=== PATIENT | female | born 1980 | race Caucasian/White ===

== ENCOUNTER → 2016-05-29 | Outpatient (CLI) | payer OTHER ==
--- NOTE | 2016-05-29 08:40 | RAD ---
Abdominal ultrasound, 05/29/2016: History: Pelvic mass The gallbladder is within normal limits in size. There is no sonographic evidence of cholelithiasis. The gallbladder wall is not thickened. No bile duct dilatation is seen. The visualized portions of the liver, pancreas, spleen and both kidneys are unremarkable. The abdominal aorta is of normal caliber. The inferior vena cava shows no abnormality. No free fluid is evident in the abdomen. IMPRESSION: No significant abdominal abnormality is detected. Pelvic ultrasound, 05/29/2016: Transabdominal and transvaginal scans were obtained. The uterus is within normal limits in size. There is a normal central uterine echo. No uterine mass is seen. The ovaries are at the upper limits of normal in size. They contain small follicular cysts. No adnexal mass is seen. A small amount of free fluid is noted in the pelvis. This amount of fluid can be on a physiologic basis. Small benign-appearing lymph nodes are noted at the right groin level. IMPRESSION: 1. Small amount of free fluid in the pelvis. 2. The pelvic ultrasound is otherwise unremarkable.
== END | disposition home or self-care (01) ==
LOC: US 07:01
PROVIDERS: ATTEND Physician Assistant Surgical
DX: R19.00 Intra-abdominal and pelvic swelling, mass and lump, unspecified site (principal)
CPT/HCPCS: 76700; 76830; 76856

== ENCOUNTER → 2016-10-20 | Outpatient (CLI) | payer OTHER ==
[2016-10-20 17:38] LABS: FOLATE 11.11 ng/ml (3.2-20.0)
[2016-10-22 12:20] LABS: ALPHA 1 0.2 g/dL (0.0-0.4); ALPHA 2 0.7 g/dL (0.4-1.0); BETA 0.9 g/dL (0.7-1.3); M-SPIKE Not Observed g/dL (Not Observed); PROTEIN TOTAL 6.9 g/dL (6.0-8.5)
== END | disposition home or self-care (01) ==
LOC: LAB 14:49
PROVIDERS: ATTEND Psychiatry & Neurology Neurology with Special Qualifications in Child Neurology
DX: G62.9 Polyneuropathy, unspecified (principal)
CPT/HCPCS: 36415; 82607; 82746; 84165; 85651

== ENCOUNTER → 2017-04-22 | Outpatient (CLI) | payer OTHER | END | disposition home or self-care (01) | LOC: MRI 12:02 | DX: M48.02 Spinal stenosis, cervical region (principal); M51.36 Other intervertebral disc degeneration, lumbar region; R20.0 Anesthesia of skin | CPT/HCPCS: 72141; 72148 ==

== ENCOUNTER → 2017-05-04 | Outpatient (CLI) | payer OTHER | END | disposition home or self-care (01) | LOC: PNCL 08:08 | DX: M51.26 Other intervertebral disc displacement, lumbar region (principal); I10 Essential (primary) hypertension; Z83.3 Family history of diabetes mellitus | CPT/HCPCS: 99213 ==

== ENCOUNTER → 2017-05-18 | Outpatient (CLI) | payer OTHER ==
[~2017-05-18] MED LIST: IOHEXOL 180 MG/ML 10 ML VIAL.; methylPREDNISolone ACETATE 40 MG/ML VIAL.; methylPREDNISolone ACETATE 80 MG/ML VIAL.
== END ==
LOC: PNCL 07:51
DX: M51.16 Intervertebral disc disorders with radiculopathy, lumbar region (principal)
CPT/HCPCS: 62323; J1030; J1040; Q9965

== ENCOUNTER → 2017-06-01 | Outpatient (CLI) | payer OTHER | END | disposition home or self-care (01) | LOC: PNCL 14:09 | DX: M51.16 Intervertebral disc disorders with radiculopathy, lumbar region (principal) | CPT/HCPCS: 99212 ==

== ENCOUNTER → 2017-07-14 | Outpatient (CLI) | payer OTHER ==
[~2017-07-14] MED LIST changes: +LIDOCAINE 1% PF 2 ML VIAL.
== END | disposition home or self-care (01) ==
LOC: PNCL 10:21
DX: M51.16 Intervertebral disc disorders with radiculopathy, lumbar region (principal); Z88.5 Allergy status to narcotic agent
CPT/HCPCS: 62323; J1030; J1040; Q9965

== ENCOUNTER → 2018-01-20 | Outpatient (CLI) | payer OTHER ==
[~2018-01-20] MED LIST changes: +DOXY100C2 PO; -IOHEXOL 180 MG/ML 10 ML VIAL.; +LEVO112T4 PO; -LIDOCAINE 1% PF 2 ML VIAL.; +NORE0.3520 PO; +PROP10TA PO; -methylPREDNISolone ACETATE 40 MG/ML VIAL.; -methylPREDNISolone ACETATE 80 MG/ML VIAL.
--- NOTE | 2018-01-20 19:31 | PAIN ---
DATE OF SERVICE: 01/20/2018 DIAGNOSES: Lumbar radiculopathy with lumbar degenerative disk disease. HISTORY OF PRESENT ILLNESS: The patient is a 37-year-old female who returns for followup status post lumbar epidural steroid injection x 2, last was 07/14/2017. The patient did very well with 100% improvement for the first month and then about 60% improvement overall and still about 60% improvement, still the pain is returning now, more noticeable day by day in the low back, left lower extremity, posterior gluteus, posterior thigh region, posterior calf with numbness as well, tingling, burning, stabbing and sharp, tight in the back and shooting in the leg in a radicular fashion on the left side. The patient reports she has had some acupuncture since she last was here, which helped mildly. She also continues to do physical therapy exercises on her own, stretching and strengthening, and she is exercising regularly daily. Also, was running competitively, but has stopped the running because it was exacerbating the pain over about the past 2 months. The patient reports the pain is an 8 on a scale of 10 at its worst, 6-7 on average and 1-2 at its least, also has some complaints of numbness and tingling in both the arms and hands and some pain in the base of the neck and shoulders. The patient did have a new MRI scan of the cervical spine, which shows degenerative changes, most significant with mild left-sided central stenosis at C4-C5 without significant cord impingement. The patient's back, however, remains a significant complaint and the patient reports no new motor or sensory deficits, no bowel or bladder incontinence. PHYSICAL EXAMINATION: VITAL SIGNS: The patient's blood pressure 116/64, pulse 68, respirations 16, temperature 98.2 degrees Fahrenheit, height is 5 feet 8 inches, weight is 138 pounds. GENERAL: She is awake, alert, oriented, appropriate, very pleasant demeanor. HEENT: Head shows normocephalic, atraumatic. Extraocular movements intact and symmetrical. Oral cavity: Mucous membranes moist and pink. Dentition intact. NECK: Shows anterior throat supple without palpable lymphadenopathy noted. Swallow reflex is symmetrical. CHEST: Shows normal with inspection. Breath sounds are clear to auscultation bilaterally. HEART: Shows S1, S2 clear. No murmurs auscultated. ABDOMEN: Soft, nontender, nondistended. No palpable organomegaly is noted. No rebound or guarding demonstrated. BACK: Shows spine grossly in the midline, normal appearing thoracic kyphosis and lumbar lordotic curvature. Lumbar paraspinous muscle shows symmetrical on inspection, on palpation shows some mild tenderness diffusely in the low lumbar distribution, more on the left than the right, but only diffusely without radiation, without trigger points, without atrophy or hypertrophy. The patient has good rotational motion of the lumbar spine, both laterally as well as extension and flexion without difficulty or pain reported. EXTREMITIES: Lower extremities show deep tendon reflexes 2+ in the patellar and tendo calcaneus tendons are 1+. Motor exam is strong with 5/5 dorsiflexion, extension, quadriceps and hamstring flexion equal and symmetrical bilaterally as well. Peripheral pulses are 1+ posterior tibial. No peripheral edema is noted bilaterally. Options were discussed with the patient. The patient's old chart was reviewed as her current medication regimen updated. Current review of systems updated today as well. We will proceed with preauthorization for an additional lumbar epidural steroid injection. The patient did very well with the last injection, near 100% improvement for the first month, now tapered down to be about 60%. The patient with radiculopathy in the L5-S1 dermatomal distribution on the left side as noted. Again, significantly improved, but returning pain in a radicular fashion as described. The patient will continue with exercises and working out. Also, try Medrol Dosepak to see if this may help with some of the pain in the meantime as well as the numbness and tingling in the cervical distribution as well. The patient will return to clinic once preauthorization is obtained and we will plan on lumbar epidural steroid injection at that time. JOSE MARCOS MD DR: JERRELL/ysabel JOB#: [id number] / [id number]
== END | disposition home or self-care (01) ==
LOC: PNCL 15:12
PROVIDERS: ATTEND Anesthesiology
DX: M51.16 Intervertebral disc disorders with radiculopathy, lumbar region (principal); M48.02 Spinal stenosis, cervical region; M47.892 Other spondylosis, cervical region
CPT/HCPCS: G0463

== ENCOUNTER → 2018-01-27 | Outpatient (CLI) | payer OTHER ==
[~2018-01-27] MED LIST changes: +IOHEXOL 180 MG/ML 10 ML VIAL. ONE; +methylPREDNISolone ACETATE 40 MG/ML VIAL. ONE; +methylPREDNISolone ACETATE 80 MG/ML VIAL. ONE
--- NOTE | 2018-01-27 08:24 | PAIN ---
DATE OF SERVICE: 01/27/2018 PROGRESS NOTE FOR PAIN CLINIC DIAGNOSIS: Lumbar radiculopathy with lumbar degenerative disk disease. HISTORY OF PRESENT ILLNESS: The patient is a 37-year-old female who returns for followup status post lumbar epidural steroid injections with very good results. She has preauthorization for the injection today and has obtained this now and would like to proceed, still complaining of pain in the low back, more on the left side than the right with the left posterior gluteus, posterior thigh, lateral thigh, rates it 8 on a scale of 10 at its worst, 6-7 on average and 0-1 at its least and is a 6 today. The patient reports no new motor or sensory deficits and no new bowel or bladder incontinence or other complaints. Still awakening her from sleep about every 5-7 hours but most times does not awaken her; better with sitting or lying down; worse with standing, walking, changing positions, bending, stooping. The patient reports the pain is aching and tight across the low back and into the leg with some stabbing and shooting pain occasionally but only on and off. The patient reports no new motor or sensory deficits and no new bowel or bladder incontinence or other complaints. PHYSICAL EXAMINATION: VITAL SIGNS: The patient's blood pressure is 96/57, pulse 69, respirations 18 and temperature 97.6 degrees Fahrenheit. Height is 5 feet 8 inches and weighs 138 pounds. GENERAL: The patient is awake, alert, oriented, appropriate and very pleasant demeanor. HEENT: Head shows normocephalic and atraumatic. Extraocular movements are intact and symmetrical. Oral cavity: Mucous membranes are moist and pink. Dentition is intact. NECK: Shows anterior throat supple without palpable lymphadenopathy noted. Swallow reflex is symmetrical. CHEST: Shows normal on inspection. Breath sounds clear to auscultation bilaterally. HEART: Shows S1 and S2 clear. No murmurs auscultated. ABDOMEN: Soft, nontender and nondistended. No palpable organomegaly is noted. No rebound or guarding demonstrated. BACK: Shows spine grossly in the midline. Normal appearing thoracic kyphosis and lumbar lordotic curvature. Lumbar paraspinous muscle shows symmetrical on inspection, on palpation shows some moderate tenderness but only diffusely in the low lumbar distribution, but is symmetrical without evidence of atrophy or hypertrophy. The patient has good rotational motion both laterally as well as extension and flexion without difficulty. EXTREMITIES: Lower extremities show deep tendon reflexes at 2+ in the patellar, 1+ in tendo-calcaneus tendons. Motor exam is strong with 5/5 dorsiflexion, extension, quadriceps and hamstring flexion equal. Peripheral pulses are 1+ posterior tibial. No peripheral edema is noted bilaterally. Options were discussed with the patient. The patient's old chart was reviewed as well as her current medication regimen updated. Current review of systems updated today as well. We will proceed with a first in the series of lumbar epidural steroid injection today with fluoroscopic guidance. Risks were again discussed including, but not limited to bleeding, infection, possibility of epidural hematoma, subsequent neurologic compromise, dural puncture, headaches, spinal cord and/or nerve damage, side effects of steroid medication and poor results regarding pain control. The patient understands and wished to proceed. The patient will return to the clinic in approximately 2 weeks for followup, was counseled as to return appointment, activity level and side effects to be aware of. DIAGNOSIS: Lumbar radiculopathy with lumbar degenerative disk disease. PROCEDURE: Lumbar epidural steroid injection, translaminar approach at the L5-S1 level using C-arm fluoroscopic guidance under sterile prep and drape using local anesthetic. MEDICATIONS INJECTED: A total of 120 mg Depo-Medrol plus 10 mL of preservative-free normal saline and 2 mL of Isovue for contrast. CONDITION AT DISCHARGE: Stable. The patient tolerated the procedure well and had no complications. JOSE MARCOS MD DR: JERRELL/ysabel JOB#: [id number] / [id number]
== END | disposition home or self-care (01) ==
LOC: PNCL 07:29
PROVIDERS: ATTEND Anesthesiology
DX: M51.16 Intervertebral disc disorders with radiculopathy, lumbar region (principal); Z88.5 Allergy status to narcotic agent
CPT/HCPCS: 62323; J1030; J1040; Q9965

== ENCOUNTER → 2018-06-15 | Outpatient (CLI) | payer OTHER ==
[~2018-06-15] MED LIST changes: -IOHEXOL 180 MG/ML 10 ML VIAL. ONE; -methylPREDNISolone ACETATE 40 MG/ML VIAL. ONE; -methylPREDNISolone ACETATE 80 MG/ML VIAL. ONE
--- NOTE | 2018-06-15 13:26 | RAD ---
DATE: 06/15/2018 EXAM: DIGITAL DIAGNOSTIC BILATERAL, left breast ultrasound HISTORY: Left breast pain COMPARISON: 01/08/2016 This study was interpreted with the benefit of Computerized Aided Detection (CAD). Breast Density: HETERO The breast parenchyma is heterogenously dense, which could reduce sensitivity of mammography. Breast parenchyma level C. FINDINGS: The fibroglandular tissues are heterogeneous. No new or enlarging breast densities are seen. A benign type calcifications noted on the right. No suspicious microcalcifications are evident. Left breast ultrasound, 06/15/2018: The left breast was carefully scanned. The fibroglandular shadows are heterogeneous. At the 2:00 location approximately 4 cm from the nipple there is a smooth 5 mm hypoechoic nodule. There is no definite posterior acoustic enhancement or shadowing. It is rounded in configuration. There are low level internal echoes. No internal color flow is seen. It has a relatively benign appearance and is probably a complicated cyst or fibroadenoma. No other breast abnormality is detected. IMPRESSION: 1. No mammographic abnormality is detected. 2. Small, probably benign left breast nodule identified sonographically. Follow-up left breast ultrasound in 6 months is suggested. BI-RADS CATEGORY: 3 PROBABLY BENIGN FINDING(S)-SHORT INTERVAL FOLLOW-UP SUGGESTED RECOMMENDED FOLLOW-UP: 6M 6 MONTH FOLLOW-UP PQRS compliance statement: Patient information was entered into a reminder system with a target due date for the next mammogram. Mammography is a sensitive method for finding small breast cancers, but it does not detect them all and is not a substitute for careful clinical examination. A negative mammogram does not negate a clinically suspicious finding and should not result in delay in biopsying a clinically suspicious abnormality. "Our facility is accredited by the [employer] Mammography Program."
== END | disposition home or self-care (01) ==
LOC: MAMMO 12:18
PROVIDERS: ATTEND Nurse Practitioner Family
DX: N63.21 Unspecified lump in the left breast, upper outer quadrant (principal); N64.89 Other specified disorders of breast
CPT/HCPCS: 76641; 77066

== ENCOUNTER → 2018-08-10 | Outpatient (CLI) | payer OTHER ==
--- NOTE | 2018-08-10 09:12 | RAD ---
Chest radiograph 08/10/2018 12:00 AM INDICATION: Cough, worsening over the past 2 weeks. COMPARISON: None available TECHNIQUE: Frontal and lateral views of the chest are provided. FINDINGS: The cardiomediastinal silhouette is within normal limits. There are no pleural effusions. There is no pulmonary vascular congestion. There is no pneumothorax. The lungs are clear. Dextroconvex scoliosis of the thoracic spine centered at T7-T8. IMPRESSION: No acute cardiopulmonary process. Electronically signed by: Christen Luna MD (08/10/2018 9:10 AM) [id number]
== END | disposition home or self-care (01) ==
LOC: RAD 08:25
PROVIDERS: ATTEND Preventive Medicine Undersea and Hyperbaric Medicine
DX: M41.84 Other forms of scoliosis, thoracic region (principal)
CPT/HCPCS: 71046

== ENCOUNTER → 2019-01-25 | Outpatient (CLI) | payer OTHER ==
--- NOTE | 2019-01-25 13:46 | RAD ---
LEFT BREAST SONOGRAPHY Clinical indications: Follow-up of 5 mm nodule the 2:00 position of the left breast 4 cm from the nipple. COMPARISON: June 15, 2018. FINDINGS: High-resolution sonography of the upper outer quadrant of the left breast was performed. At the 2:30 position 4 cm from the nipple, a 4 mm hypoechoic nodule is seen with thin echogenic capsule around it and no microlobulations. No internal color flow is seen. This may represent a small fibroadenoma. IMPRESSION: No increase in size of small 4 mm hypoechoic nodule of the 2:30 position of the left breast most likely representing a small fibroadenoma. Recommend left breast sonography at the time of the next patient's annual mammogram in 6 months. BI-RADS Category 3 probable benign finding The patient information was entered into the data reminder system with a target due date for the next imaging study of July 27, 2019.
== END | disposition home or self-care (01) ==
LOC: US 13:20
PROVIDERS: ATTEND Obstetrics & Gynecology
DX: N63.21 Unspecified lump in the left breast, upper outer quadrant (principal)
CPT/HCPCS: 76641

== ENCOUNTER → 2019-06-05 | Outpatient (CLI) | payer OTHER ==
[~2019-06-05] MED LIST changes: -LEVO112T4 PO; +LEVO112T49 PO
[2019-06-05 09:46] LABS: CLARITY,URINE BLOODY; COLOR,URINE RED
[2019-06-05 09:47] LABS: BACTERIA,URINE 0 /HPF (0-FEW); RBC,URINE TNTC /HPF (0-2); SQUAMOUS EPITHELIAL CELL,UR OCC /LPF; WBC,URINE 0 /HPF (0-4)
== END | disposition home or self-care (01) ==
LOC: LAB 08:52
PROVIDERS: ATTEND Emergency Medicine Undersea and Hyperbaric Medicine
DX: N39.0 Urinary tract infection, site not specified (principal)
CPT/HCPCS: 81001; 87086

== ENCOUNTER → 2019-10-20 | Outpatient (CLI) | payer OTHER | END | disposition home or self-care (01) | LOC: LAB 11:27 | PROVIDERS: ATTEND Internal Medicine Pulmonary Disease | DX: U07.1 COVID-19 (principal) | CPT/HCPCS: U0003-CS ==

== ENCOUNTER → 2019-11-07 | Outpatient (CLI) | payer OTHER ==
--- NOTE | 2019-11-08 09:00 | RAD ---
EXAMINATION: BREAST LEFT, MAMMO BENJAMIN DIAG BILAT History: Reason: Follow up left breast / Spl. Instructions: / History: Comparison: 12/12/2015, 06/15/2018, left breast ultrasound examinations 06/15/2018 and 01/25/2019. Technique: Bilateral digital diagnostic mammogram views were obtained. CAD was utilized. 3-D tomosynthesis images were acquired. Findings: Breast Tissue Density C : The breasts are heterogeneously dense, which may obscure small masses. There are no dominant masses, suspicious microcalcifications, or architectural distortion. Ultrasound examination of the left breast was performed in the 2:30 region 4 cm from the nipple. Complicated cyst at this site has decreased in size and currently measures 0.2 cm x 0.2 cm x 0.2 cm. No flow evident within it. IMPRESSION: No mammographic evidence of malignancy. Recommend routine screening. BI-RADS category 1: Negative. The images were reviewed with computer aided detection. Patient information is entered into the reminder system with a target due date for the next screening mammogram. Mammography is the most sensitive method for finding small breast cancers, but it does not detect them all and is not a substitute for careful clinical examination. A negative mammogram does not negate a clinically suspicious finding and should not result in delay in biopsying a clinically suspicious abnormality. "Our facility is accredited by the [employer] Mammography Program." Electronically signed by: Darryl Hardwick MD (11/08/2019 8:57 AM) [id number]
== END | disposition home or self-care (01) ==
LOC: MAMMO 13:08
PROVIDERS: ATTEND Family Medicine
DX: R92.8 Other abnormal and inconclusive findings on diagnostic imaging of breast (principal); N60.02 Solitary cyst of left breast
CPT/HCPCS: 76641; 77066; G0279; 77062

== ENCOUNTER → 2020-04-17 | Outpatient (CLI) | payer OTHER ==
--- NOTE | 2020-04-17 09:10 | RAD ---
Renal ultrasound 04/17/2020 CLINICAL HISTORY: Hematuria. TECHNIQUE: A real-time ultrasound examination of both kidneys and the urinary bladder was performed. Multiple images were obtained. FINDINGS: Both kidneys are within normal limits in size and echogenicity. The right kidney measures 1 1.5 cm in length. The left kidney measures 12.4 cm in length. No focal abnormality of either kidney i s seen. There is no evidence of hydronephrosis. No renal calculus is seen. The urinary bladder is distended with urine. No abnormality is seen. IMPRESSION: Negative study. Electronically signed by: Orlando Ramirez MD (04/17/2020 9:08 AM) [id number]
== END ==
LOC: US 08:06
PROVIDERS: ATTEND Family Medicine
DX: R31.9 Hematuria, unspecified (principal); N32.89 Other specified disorders of bladder
CPT/HCPCS: 76770

== ENCOUNTER → 2021-02-04 | Outpatient (CLI) | payer OTHER ==
[~2021-02-04] MED LIST changes: -DOXY100C2 PO; +DOXY100C3 PO
== END ==
LOC: LAB 11:31
PROVIDERS: ATTEND Internal Medicine Pulmonary Disease
DX: R05.9 Cough, unspecified (principal); R51.9 Headache, unspecified; R09.81 Nasal congestion; R43.0 Anosmia; Z20.822 Contact with and (suspected) exposure to COVID-19
CPT/HCPCS: U0003; U0005